=== PATIENT | male | born 1970 | race African-American/Black ===

== ENCOUNTER 2023-04-20 03:17 | Outpatient (CLI) | payer SELFPAY ==
[2023-04-21 11:01] LABS: Measles IgG Antibody Positive (See Note); Mumps Antibody IgG Positive (See Note); Rubella IgG Ab (UVM) Positive (See Note); Varicella IgG Antibody Positive (See Note)
[2023-04-22 12:16] LABS: TB Interpretation Negative (Negative)
== END 2023-04-20 03:18 | disposition home or self-care (01) ==
LOC: LBO 03:18
PROVIDERS: PCP Family Medicine; Visit Provider Nurse Practitioner Family
DX: Z02.1 Encounter for pre-employment examination (principal)
CPT/HCPCS: 36415; 86787; 86480; 86735; 86762; 86765